=== PATIENT | male | born 1990 | race Caucasian/White ===

== ENCOUNTER 2020-12-13 18:07 | Observation (INO) | payer BC ==
[2020-12-13] MEDS ORDERED: Ketorolac Tromethamine 30 MG/ML VIAL ONE (20:07)
[2020-12-13] MEDS ORDERED: Ondansetron PF 4 MG/2 ML Vial ONE (20:07)
[2020-12-13 20:14] LABS: Hemoglobin 13.9 g/dL (13.5-17.5); Mean Corpuscular HGB CONC 33.5 g/dL (32.0-36.0); Mean Corpuscular Hemoglobin 29.8 pg (27.0-33.0); Mean Corpuscular Volume 89.1 fl (81.2-95.1); Mean Platelet Volume 9.3 fl (7.4-10.4); RBC Distribution Width 13.2 % (11.5-14.5); Red Blood Cell (RBC) Count 4.66 10x6/uL (4.32-5.72)
[2020-12-13 20:18] LABS: ALT (SGPT) 811 U/L (8-55); AST (SGOT) 456 U/L (5-34); Alkaline Phosphatase 367 U/L (40-110); Anion Gap 13 mmol/L (10-20); BUN (Urea Nitrogen) 10 mg/dL (8.9-20.6); Bilirubin, Total 0.7 mg/dL (0.2-1.2); Calc. Creatinine Clearance 0 mL/min (70-130); Calcium 9.5 mg/dL (7.8-10.44); Carbon Dioxide 28 mmol/L (22-29); Chloride 101 mmol/L (98-107); Glucose 148 mg/dL (70-105); Potassium 3.9 mmol/L (3.5-5.1); Sodium 138 mmol/L (136-145)
[2020-12-13 20:43] LABS: Lipase Less than 4 U/L (8-78)
[2020-12-13 21:00] LABS: Band 1 % (5-11); Eosinophils 1 % (0-10); Lymphocytes 47 % (21-51); Metamyelocyte 5 % (0-0); Monocytes 6 % (0-10); Myelocyte 1 % (0-0); Neutrophil 21 % (42-75); Reactive Lymphocytes 18 % (0-10)
[2020-12-13 21:01] LABS: White Blood Cell (WBC) Count 5.6 10x3/uL (3.5-10.5)
[2020-12-13 21:02] LABS: Platelet Count 97 10x3/uL (150-450)
[2020-12-13 21:04] LABS: Microcytosis SLIGHT = 6-15 cells (100X) (0-5/hpf)
[2020-12-13 21:05] LABS: Platelet Morphology Comment Appears Decreased
[2020-12-13] MEDS ORDERED: Cefepime 2 GM VIAL ONE (22:21)
[2020-12-13 22:28] LABS: Bilirubin Neg (Negative); Blood, Urine 25 (Negative); Clarity Clear (Clear); Glucose, Urine (Dipstick) Normal (Negative); Ketone, Urine Negative (Negative); Leukocyte Negative (Negative); Nitrite Negative (Negative); Protein, Urine (Dipstick) Negative (Neg-Trace); Urobilinogen Normal mg/dL (Less than 2)
[2020-12-13 22:37] LABS: Bacteria/HPF 3+ HPF (None Seen); Mucous/LPF 1+ LPF (<2+); RBC/HPF 0-3 HPF (0-3); Squamous Epithelial None Seen HPF (0-3); WBC/HPF 0-3 HPF (0-3)
[2020-12-13] MEDS ORDERED: Calcium Carbonate 500 MG ChewTAB PO PRN (22:49)
[2020-12-13] MEDS ORDERED: Zolpidem Tartrate 5 MG TAB PO PRN (22:49)
[2020-12-13] MEDS ORDERED: Senokot S 8.6-50 MG TAB PO PRN (22:49)
[2020-12-13] MEDS ORDERED: Ondansetron PF 4 MG/2 ML Vial IVP PRN (22:49)
[2020-12-13] MEDS ORDERED: Vancomycin HCl 500 MG VIAL ONE (22:51)
[2020-12-13] MEDS ORDERED: Albuterol Sulfate 2.5 mg/3 ml Neb NEB PRN (22:53)
[2020-12-13 23:26] LABS: Acetaminophen Less than 6.0 mcg/mL (10.0-30.0)
[2020-12-14] MEDS ORDERED: Morphine 2 MG/ML VIAL SLOW IVP PRN (00:36)
[2020-12-14] MEDS: Sodium Chloride 0.9% 1,000 ML IV SCH ×3 (01:00→19:22)
[2020-12-14 05:43] LABS: ALT (SGPT) 613 U/L (8-55); AST (SGOT) 303 U/L (5-34); Albumin 3.2 g/dL (3.5-5.0); Alkaline Phosphatase 301 U/L (40-110); Anion Gap 14 mmol/L (10-20); BUN (Urea Nitrogen) 10 mg/dL (8.9-20.6); Bilirubin, Total 0.7 mg/dL (0.2-1.2); Calc. Creatinine Clearance 136 mL/min (70-130); Calcium 8.4 mg/dL (7.8-10.44); Carbon Dioxide 23 mmol/L (22-29); Chloride 107 mmol/L (98-107); Globulin 2.4 g/dL (2.4-3.5); Glucose 79 mg/dL (70-105); Potassium 4.1 mmol/L (3.5-5.1); Protein, Total 5.6 g/dL (6.0-8.3); Sodium 140 mmol/L (136-145)
[2020-12-14 06:16] LABS: Mean Corpuscular HGB CONC 33.1 g/dL (32.0-36.0); Mean Corpuscular Hemoglobin 29.9 pg (27.0-33.0); Mean Platelet Volume 9.7 fl (7.4-10.4); Platelet Count 81 10x3/uL (150-450); RBC Distribution Width 13.2 % (11.5-14.5); Red Blood Cell (RBC) Count 4.02 10x6/uL (4.32-5.72); White Blood Cell (WBC) Count 5.8 10x3/uL (3.5-10.5)
[2020-12-14 06:24] LABS: INR-International Normal Ratio 1.1; PTT 25.6 sec (22.0-33.0); Prothrombin Time 12.4 sec (9.5-12.1)
[2020-12-14 07:08] LABS: Band 11 % (5-11); Eosinophils 1 % (0-10); Lymphocytes 36 % (21-51); Monocytes 5 % (0-10); Neutrophil 19 % (42-75); Reactive Lymphocytes 27 % (0-10)
[2020-12-14 07:13] LABS: Platelet Morphology Comment Appears Decreased; Toxic Granulation SLIGHT
[2020-12-14 07:14] LABS: MDiff Complete? YES; Manual Diff?? YES
[2020-12-14 07:16] LABS: RBC Morphology Normal; Reflex for Review?? YES
[2020-12-14] MEDS ORDERED: Pantoprazole 40 MG VIAL IVP SCH (09:00)
[2020-12-14] MEDS ORDERED: Enoxaparin Sodium 40 MG/0.4 ML SYRINGE SC SCH (09:00)
[2020-12-14 09:31] VITALS: BMI 27.8
[2020-12-14] MEDS: Pancrelipase DR 12,000 1 CAP PO SCH ×3 (09:32→16:30)
[2020-12-14] MEDS: Mupirocin 2% Ointment 22 GM Tube TOP SCH ×2 (09:32→19:22)
[2020-12-14 10:17] LABS: HBCM Index 0.07 S/CO (0-0.79); HBSAg Index 0.23 S/CO (0-0.99); Hep A IgM AB Non-Reactive (NonReactive); Hep A IgM S/CO 0.13 S/CO (0-0.79); Hep B Surf Ag Non-Reactive S/CO (NonReactive); Hep C IgG Ab Non-Reactive (NonReactive); Hep C Index 0.08 S/CO (0-0.79); Hepatitis B Core IgM Abs Non-Reactive (NonReactive)
[2020-12-14 13:44] LABS: ALT (SGPT) 582 U/L (8-55); AST (SGOT) 288 U/L (5-34); Albumin 3.4 g/dL (3.5-5.0); Alkaline Phosphatase 307 U/L (40-110); Anion Gap 12 mmol/L (10-20); BUN (Urea Nitrogen) 9 mg/dL (8.9-20.6); Bilirubin, Total 0.6 mg/dL (0.2-1.2); Calc. Creatinine Clearance 122 mL/min (70-130); Calcium 8.4 mg/dL (7.8-10.44); Carbon Dioxide 26 mmol/L (22-29); Chloride 105 mmol/L (98-107); Globulin 2.4 g/dL (2.4-3.5); Glucose 146 mg/dL (70-105); Potassium 3.9 mmol/L (3.5-5.1); Protein, Total 5.8 g/dL (6.0-8.3); Sodium 139 mmol/L (136-145)
[2020-12-14 17:14] VITALS: BP 118/73; TEMP 98.4
[2020-12-15 09:36] LABS: EBV VCA IgM >160.0 U/mL (0.0-35.9); Nuclear AG IgG (EBNA) AB <18.0 U/mL (0.0-17.9)
[2020-12-16 19:37] LABS: CMV IgG AB Less than 0.60 U/mL (0.00-0.59)
[2020-12-18 06:13] LABS: CMV DNA-PCR Test Negative (Negative)
== END 2020-12-14 18:30 | disposition home or self-care (01) ==
LOC: CSHERS 18:07 → CSHTELE 22:55
PROVIDERS: ADMIT Student in an Organized Health Care Education/Training Program; ATTEND Family Medicine
DX: B17.9 Acute viral hepatitis, unspecified (principal); D69.6 Thrombocytopenia, unspecified; R74.01 Elevation of levels of liver transaminase levels; E84.9 Cystic fibrosis, unspecified; Z79.899 Other long term (current) drug therapy; R10.9 Unspecified abdominal pain
CPT/HCPCS: 36415; 71045; 76705; 80053; 80074; 80143; 81003; 81015; 82607; 82746; 83605; 83690; 85025; 85060; 85610; 85730; 86644; 86645; 86664; 86665; 87040; 87086; 87497; 87798; 96365; 96367; 96375; 80307; C9113; G0378; J0692; J1885; J2405; J3370; J7050